=== PATIENT | female | born 1945 | race Caucasian/White ===

== ENCOUNTER 2019-12-31 20:02 | Emergency (ER) | payer MEDICARE, SELFPAY ==
[2019-12-31 20:03] VITALS: BP 141/90; PULSE 92; RESP 14; TEMP 36.3; O2SAT 99; BMI 29.5
--- NOTE | 2019-12-31 20:15 | ED.DCSUM_ITS ---
History of Present Illness Chief Complaint: Diarrhea Detail of Chief Complaint: Watery stools especially after eating Informant: Patient, Significant Other Onset: Weeks Context: Sudden Onset Timing: Intermittent Quality: Watery diarrhea with mucus Location: Not applicable Current Severity: Moderate Maximum Severity: Moderate Worsened by: Initially antibiotics now with meals Relieved by: Nothing Associated Symptoms: Complains of abdominal distention and bloating for the past couple of days Narrative: It is a 74-year-old woman who was placed on Augmentin for respiratory infection. She states she developed diarrhea. She discontinued the antibiotic. She continued to have diarrhea. Diarrhea subsided somewhat. Over the past 8 to 9 days she is going 8+ times a day. She notes mucus without blood. There is no history of amatory bowel disorder. She denies history of C. difficile. She denies ill contacts. She is concerned because she has abdominal pain with bloating and distention over the past couple of days. She is still flagellated. She denies prior history of small bowel obstruction. She did have bilateral tubal ligation performed many years ago. She states even if she eats a small amount she will have 4-5 loose stools immediately after eating. She denies weight loss, however. She denies thirst or dry mouth. She denies orthostatic symptoms. She denies fevers or chills. Prior similar symptoms: No Recent Illness/Hospitalization: Yes - Respiratory treated with antibiotics - Past Medical History (1) No significant past medical history Status: Acute Past Medical History - Allergies and Home Meds Allergies/Adverse Reactions: Allergies No Known Allergies Allergy (Verified 12/31/19 20:03) Primary Care Physician: Gordo Fairchild MD [Primary Care Provider] - Prior records reviewed: Yes Past Medical History: None Surgical History: - - Bilateral tubal ligation Lives: Spouse/ Significant Other Smoking Status: Never smoker Alcohol: None Drugs: None Review of Systems General: Denies: Chills, Fever, Malaise, Subjective, Sweats, Weight loss, - Cardiovascular: Denies: Chest pain, Palpitations Respiratory: Reports: Dyspnea Gastrointestinal: Reports: Abdominal pain, Nausea, Diarrhea. Denies: Vomiting, Constipation, Melena, Hematochezia, -, - Musculoskeletal: Denies: Myalgias, Arthralgias, Swelling, Extremity Pain Skin: Denies: Rash, Wounds Neurological: Reports: Weakness. Denies: Headache, Parasthesia Endocrine: Denies: Polyuria, Polydipsia Hematologic: Denies: Easy bruising, Easy bleeding Physical Exam Vital Signs/Narrative: Vital Signs Temp Pulse Resp BP Pulse Ox 12/31/19 20:03 97.4 F L 92 14 141/90 H 99 Inital Vital Signs reviewed: Yes General: Well nourished, Well developed, No Acute Distress Head: Normocephalic, Atraumatic Eyes: Perrl, EOMI. Negative for: Pale conjunctiva, Scleral icterus ENT: No rhinorrhea, TM's clear, Dry mucous membranes Neck: Supple, Nontender, No lymphadenopathy, No JVD Cardiovascular: Regular rate, Regular rhythm, No murmurs, Normal S1, Normal S2 Respiratory: No distress, CTA bilaterally, Chest nontender Abdomen: Soft, Nontender, No masses, Hyperactive bowel sounds. Negative for: Nondistended, Normal bowel sounds, Tender, Guarding, Rebound tenderness, Hepatomegaly, Splenomegaly, Ventral hernia, Umbilical hernia Back: Nontender Extremities: No edema Skin: Negative for: Normal color, No rash Neurological: Alert, Oriented x3, Cranial nerves II-XII grossly intact, Normal Strength, Normal Sensation Psychological: Normal affect, Normal Mood Diagnostic/Tx/Re-eval 12/31/19 20:50 Stool Stool Lactoferrin - Final Laboratory Results 12/31/19 12/31/19 20:10 20:10 WBC 10.3 RBC 4.33 Hgb 13.0 Hct 39.5 MCV 91.2 MCH 30.0 MCHC 32.9 RDW Std Deviation 43.9 RDW Coeff of Evelio 13.1 Plt Count 260 MPV 10.0 Immature Gran % (Auto) 0.400 Neut % (Auto) 63.5 Lymph % (Auto) 28.1 [place] % (Auto) 5.7 Eos % (Auto) 1.9 Baso % (Auto) 0.4 Absolute Neuts (auto) 6.5 Absolute Lymphs (auto) 2.88 Nucleated RBC % 0 Sodium 141 Potassium 3.6 Chloride 109 H Carbon Dioxide 28.0 Anion Gap 4 L BUN 9 Creatinine 0.90 Estim Creat Clear Calc 48.07 Est GFR (MDRD) Af Amer 79 Est GFR (MDRD) Non-Af 65 BUN/Creatinine Ratio 10.0 Glucose 109 H Calcium 8.6 Stool is positive fecal leukocytes. C. difficile is pending. Plan if C. difficile negative discharge with metronidazole and Cipro because of the positive fecal leukocytes and referral to PCP and GI. If C. difficile is positive treat with vancomycin. - Medical Decision Making History of diarrhea that started after antibiotics and has gotten worse and will obtain stool culture since symptoms have been present for greater than a month. Also stool for C. difficile and fecal leukocytes. Basic metabolic panel was obtained to assess electrolytes and specifically potassium as well as renal function. CBC to assess white count and differential to rule out eosinophilia which would suggest parasitic infection. Even though she denies being thirsty her tongue is dry and will treat with 1 L of normal saline. The night physician Dr. Earl Mcgill was informed the patient's plan. Will have home-going instructions as if C. difficile is negative. ED Disposition - Plan for ED Patient: Diagnosis: Diarrhea of presumed infectious origin Instructions: DIARRHEA, Unk Cause (Adult) Report Pendg Prescriptions: Ciprofloxacin [Cipro] 500 mg PO BID #14 tab Prescription Printed Metronidazole 500 mg PO TID #21 tab Prescription Printed Referrals: Gordo Fairchild MD [Primary Care Provider] - 3-5 Days
[2019-12-31 20:33] LABS: Absolute Lymphocyte Count 2.88 X10^3/uL (0.83-4.51); Absolute Neutrophil Count 6.5 X10^3/uL (2.0-7.7); Basophil# 0.04 X10^3/uL; Basophil% 0.4 % (0-1); Eosinophil# 0.19 X10^3/uL; Eosinophils% 1.9 % (0-5); Hematocrit 39.5 % (37-47); Lymphocyte # 2.88 X10^3/ul (4.0); Lymphocyte % 28.1 % (19-41); Mean Corp Hgb Conc 32.9 g/dL (32-36); Mean Corpuscular Volume 91.2 fL (81-99); Monocyte# 0.58 X10^3/uL; Monocyte% 5.7 % (0-10); NRBC Flagged by Analyzer 0 % (0-5); Neutrophil # 6.52 X10^3/uL (2.7-7.7); Neutrophil % 63.5 % (47-70); Platelet Count 260 K/mm3 (150-450); RBC Distribution Width CV 13.1 % (11.6-14.6); RBC Distribution Width SD 43.9 fl (35.1-43.9); Red Blood Count 4.33 M/mm3 (4.2-5.4); White Blood Count 10.3 K/mm3 (4.4-11.0)
[2019-12-31 20:52] LABS: Anion Gap 4 (5-15); BUN 9 mg/dL (7-18); Calcium,Total 8.6 mg/dL (8.5-10.1); Chloride 109 mmol/L (98-107); EST Glomerular Filtration Rate 65 mL/min (>60); Est Glom Filt Rate - Afr Amer 79 mL/min (>60); Estimated Creatinine Clearance 48.07 ml/min; Glucose 109 mg/dL (74-106); Potassium 3.6 mmol/L (3.5-5.1); Sodium Level 141 mmol/L (136-145)
[2019-12-31 22:12] VITALS: BP 123/63; PULSE 63; RESP 16; O2SAT 98
--- NOTE | 2019-12-31 22:34 | ED.VIS.GEN ---
History of Present Illness Chief Complaint: Diarrhea Informant: Patient, Significant Other Past Medical History - Allergies and Home Meds Allergies/Adverse Reactions: Allergies No Known Allergies Allergy (Verified 12/31/19 20:03) Primary Care Physician: Gordo Fairchild MD [Primary Care Provider] - 3-5 Days Surgical History: - - Bilateral tubal ligation Lives: Spouse/ Significant Other Smoking Status: Never smoker Alcohol: None Drugs: None Physical Exam Vital Signs/Narrative: Vital Signs Temp Pulse Resp BP Pulse Ox 12/31/19 22:12 63 16 123/63 H 98 12/31/19 20:03 97.4 F L 92 14 141/90 H 99 ED Disposition - Plan for ED Patient: Disposition: Home or Assisted Living Diagnosis: Diarrhea of presumed infectious origin Instructions: Clostridium difficile Infection Prescriptions: Ciprofloxacin [Cipro] 500 mg PO BID #14 tab Prescription Printed Metronidazole 500 mg PO TID #21 tab Prescription Printed Vancomycin [Vancocin] 125 mg PO Q6H #40 cap Prescription Printed Referrals: Gordo Fairchild MD [Primary Care Provider] - 3-5 Days
[2019-12-31 22:39] VITALS: BP 123/63; PULSE 63; RESP 16; O2SAT 98
== END 2019-12-31 23:24 | disposition home or self-care (01) ==
PROVIDERS: Emergency Provider Emergency Medicine; PCP Family Medicine
DX: A09 Infectious gastroenteritis and colitis, unspecified (principal)
CPT/HCPCS: 80048; 83630; 85025; 87493; 87506; 99284; A4216

== ENCOUNTER 2024-11-24 15:48 | Emergency (ER) | payer MEDICARE, SELFPAY ==
[2024-11-24 15:50] VITALS: BP 144/87; PULSE 73; RESP 16; TEMP 36.5; O2SAT 98; BMI 29.2
[2024-11-24 17:49] VITALS: BP 140/77; PULSE 71; RESP 18; O2SAT 98
--- NOTE | 2024-11-24 18:00 | EX.ED.DYSGE1 ---
HPI History of Present Illness Chief Complaint: Other, Pain/Inj Informant: patient and spouse/S.O. Narrative Narrative: 79-year-old female presenting to the emergency room with acute neck pain. Patient states over the past week or so she has had cough with mucus production and rhinorrhea. She states that she was trying some Mucinex and Tessalon Perles but they were not very effective. Because of history of C. difficile she was reluctant to start doxycycline but she eventually started it with a probiotic. She has not been experiencing any fevers or vomiting. No rashes. Today when she got up she had some slight neck discomfort that has progressively gotten worse. She states she cannot find a position of comfort. It is worse with movement and with coughing. She notes pain when she swallows and the muscles but not in the throat per se. She denies any radicular symptoms to the arm or the legs. She denies any headache. No photophobia. PFSH PFSH Home Medications ?Medication ?Instructions ?Recorded ?Last Taken ?Type Vancomycin [Vancocin] 125 mg PO Q6H #40 caps 12/31/19 Unknown Rx ciprofloxacin HCl 500 mg tablet 500 mg PO BID #14 tabs 12/31/19 Unknown Rx meloxicam 7.5 mg tablet 1 tab PO QODAY 12/31/19 Unknown History metronidazole 500 mg tablet 500 mg PO TID #21 tabs 12/31/19 Unknown Rx venlafaxine 37.5 mg tablet 37.5 mg PO DAILY 12/31/19 Unknown History oxycodone-acetaminophen 5 mg-325 1 tab PO Q6H PRN PRN Pain 3 days 11/24/24 Unknown Rx mg tablet #12 TABLETS Allergy/AdvReac Type Severity Reaction Status Date / Time No Known Allergies Allergy Verified 12/31/19 20:03 Social History Smoking Status: Never smoker ROS ROS ED Constitutional Constitutional ED: Denies chills, fever(s) or weight loss Eyes Eyes: Denies change in vision or diplopia ENT ENT ED: Reports rhinorrhea; Denies ear pain or sore throat Cardiovascular Cardiovascular: Denies chest pain, orthopnea, palpitations or racing heartbeat Respiratory/Chest Respiratory/Chest: Reports cough; Denies dyspnea or orthopnea Gastrointestinal Gastrointestinal: Denies abdominal pain, diarrhea, nausea or vomiting Genitourinary Genitourinary ED: Denies dysuria, hematuria or urinary frequency Musculoskeletal Musculoskeletal: Reports neck pain; Denies arthralgias or myalgias Integumentary Denies abscess or rash Neurologic Neurologic: Denies headache(s) or weakness Psychiatric Psychiatric: Denies anxiety, depression, suicidal ideation or suicidal thoughts Endocrine Endocrinology: Denies polydipsia, polyphagia or polyuria Allergic/Immunologic Allergic/Immunologic ED: Denies mouth swelling, tongue swelling or urticaria EXAM Physical Exam Narrative Exam Narrative: Patient appears uncomfortable laying back in the bed. She has an ice pack on her neck. Const Vital Signs: 11/24/24 15:50 11/24/24 17:49 11/24/24 19:00 Temperature 97.7 F L Temperature Source Temporal Pulse Rate 73 71 Respiratory Rate 16 18 Blood Pressure 144/87 H 140/77 H 100/62 Blood Pressure Mean 106 98 74 Pulse Ox 98 98 Oxygen Delivery Method Room Air Room Air Positive well nourished and well developed General Appearance ED: well developed HEENT Reports normocephalic, head/scalp atraumatic and moist mucous membranes Eyes PERRL and EOMs intact bilaterally Neck no lymphadenopathy, supple and no JVD Neck Narrative: Patient notes tenderness to palpation over the posterior aspect of the neck. I do not appreciate any erythema or swelling particularly pain attention around the mastoid region. Decreased range of motion secondary to pain. No stridor. Oropharyngeal exam appears unremarkable. Resp normal respiratory effort and clear to auscultation bilaterally Cardio regular rate, regular rhythm and no murmurs GI normal to inspection, nondistended, normoactive bowel sounds and non-tender Palpation: soft Back/Spine no CVA tenderness and normal ROM Extremity normal to inspection General Extremety ED: Negative for edema General Extremity: Negative for edema Neuro oriented x3, CN's II-XII intact bilaterally and no sensory deficits noted Sensorium / Orientation: alert Motor Exam: strength 5/5 throughout Psych mental status grossly normal Mood & Affect: Negative for depressed or tearful Skin no rashes or lesions noted and no wounds MDM MDM MDM Narrative Medical decision making narrative: Differential diagnosis includes but not limited to muscle spasm lymphadenitis abscess meningitis myofascial strain Clinically this does not appear to be meningitis. She has no fever no headache no photophobia. This did not appear to be radicular in nature. White count 9.[address] of the neck with IV contrast obtained essentially negative. Patient was placed in a soft collar given Toradol and some morphine. She notes improvement of pain. I think this is musculoskeletal in nature possibly due to cough or perhaps she slept abnormally last night resulting in muscle spasm. Recommend the patient use anti-inflammatories heat the soft collar I can write for a few pain medication would recommend PCP follow-up if not improving return if worsening History & Record Review Discussion w/independent historian: Patient and Significant other Lab Data Attestation: I reviewed the patient's lab results. Labs: Laboratory Results - last 24 hr 11/24/24 18:15 WBC 9.6 RBC 4.21 Hgb 12.6 Hct 38.4 MCV 91.2 MCH 29.9 MCHC 32.8 RDW Std Deviation 43.9 RDW Coeff of Evelio 13.2 Plt Count 233 MPV 10.5 Immature Gran % (Auto) 0.300 Neut % (Auto) 69.1 Lymph % (Auto) 21.5 [place] % (Auto) 6.5 Eos % (Auto) 2.2 Baso % (Auto) 0.4 Absolute Neuts (auto) 6.6 Absolute Lymphs (auto) 2.06 Nucleated RBC % 0 Sodium 137 Potassium 3.5 Chloride 102 Carbon Dioxide 28.0 Anion Gap 8 BUN 11 Creatinine 0.71 Estim Creat Clear Calc 58.30 Est GFR (MDRD) Af Amer 103 Est GFR (MDRD) Non-Af 85 BUN/Creatinine Ratio 15.6 Glucose 102 Calcium 8.8 Radiography Diagnostic Testing: Clinical Impression(s) from Imaging Studies Soft Tissue Neck CT 11/24/24 18:43 IMPRESSION: Normal neck CT. Electronically Signed: Fanny Chew MD at 19:46 EST Reading Location ID and State: [id number] / Tel , Service support , Discharge Plan Triage Chief Complaint: Other, Pain/Inj ED Provider: Stephen Pham Dx/Rx/DC Orders Clinical Impression: Acute neck pain, Cervical (neck) region somatic dysfunction Instructions: ED Neck Spasm, No Trauma Prescriptions: New oxycodone-acetaminophen 5-325 mg tablet 1 tab PO Q6H PRN PRN (Reason: Pain) 3 Days Qty: 12 0RF No Action meloxicam 7.5 MG tablet 1 tab PO QODAY Patient Comments: TAKE 1 TABLET BY MOUTH ONCE DAILY venlafaxine 37.5 MG tablet 37.5 mg PO DAILY metronidazole 500 MG tablet 500 mg PO TID Qty: 21 0RF ciprofloxacin HCl 500 MG tablet 500 mg PO BID Qty: 14 0RF Vancomycin [Vancocin] 125 MG capsule 125 mg PO Q6H Qty: 40 0RF Primary Care Provider: Gordo Fairchild Referrals: Gordo Fairchild MD [Primary Care Provider] - As Needed Print Language: Turkish Disposition Disposition: Home, Self Care
[2024-11-24] MEDS: Ondansetron 4 MG/2 ML Vial IV (18:10)
[2024-11-24] MEDS: Ketorolac 15 MG/ML Vial IV (18:11)
[2024-11-24] MEDS: Morphine 4 MG/ML Syringe IV (18:11)
[2024-11-24 18:25] LABS: Absolute Lymphocyte Count 2.06 X10^3/uL (0.83-4.51); Absolute Neutrophil Count 6.6 X10^3/uL (2.0-7.7); Basophil# 0.04 X10^3/uL; Basophil% 0.4 % (0-1); Eosinophil# 0.21 X10^3/uL; Eosinophils% 2.2 % (0-5); Hematocrit 38.4 % (37-47); Hemoglobin 12.6 g/dL (12.0-15.0); Lymphocyte # 2.06 X10^3/ul (0.83-4.51); Lymphocyte % 21.5 % (19-41); Mean Corp Hgb Conc 32.8 g/dL (32-36); Mean Corpuscular Hgb 29.9 pg (27.0-32.0); Mean Corpuscular Volume 91.2 fL (81-99); Mean Platelet Vol. 10.5 fl (6.2-12.0); Monocyte# 0.62 X10^3/uL; Monocyte% 6.5 % (0-10); NRBC Flagged by Analyzer 0 % (0-5); Neutrophil # 6.62 X10^3/uL (2.7-7.7); Neutrophil % 69.1 % (47-70); Platelet Count 233 K/mm3 (150-450); RBC Distribution Width CV 13.2 % (11.6-14.6); RBC Distribution Width SD 43.9 fl (35.1-43.9); Red Blood Count 4.21 M/mm3 (4.2-5.4); White Blood Count 9.6 K/mm3 (4.4-11.0)
[2024-11-24 18:39] LABS: Anion Gap 8 (5-15); BUN 11 mg/dL (7-18); BUN/Creat Ratio 15.6 RATIO (10-20); Calcium,Total 8.8 mg/dL (8.5-10.1); Chloride 102 mmol/L (98-107); Creatinine, Serum 0.71 mg/dL (0.55-1.02); EST Glomerular Filtration Rate 85 mL/min (>60); Est Glom Filt Rate - Afr Amer 103 mL/min (>60); Glucose 102 mg/dL (74-106); Potassium 3.5 mmol/L (3.5-5.1); Sodium Level 137 mmol/L (136-145)
--- NOTE | 2024-11-24 18:43 | CT_ITS ---
EXAM: CT NECK WITH INTRAVENOUS CONTRAST CLINICAL INDICATION: pain TECHNIQUE: Helically acquired images were obtained of the neck with intravenous contrast. This CT exam was performed using one or more of the following dose reduction techniques: automated exposure control, adjustment of the mA and/or kV according to patient size, and/or use of iterative reconstruction technique. CONTRAST: IV 75mL [id number] COMPARISON: No relevant prior studies available. FINDINGS: NASOPHARYNX: Unremarkable. SUPRAHYOID NECK: Unremarkable. Oropharynx, oral cavity, parapharyngeal space and retropharyngeal space are unremarkable. INFRAHYOID NECK: Unremarkable. The larynx, hypopharynx and supraglottis are unremarkable. SUBMANDIBULAR/PAROTID GLANDS: Unremarkable. Glands are normal in size. THYROID: Unremarkable. No enlarged or calcified nodules. BONES/JOINTS: No acute fracture. SOFT TISSUES: Unremarkable. VASCULATURE: Unremarkable. Abdominal aorta is normal in caliber. LYMPH NODES: Unremarkable. No lymphadenopathy. LUNG APICES: Unremarkable as visualized. CT/Soft Tissue Neck WITH Contrast IMPRESSION: Normal neck CT. Electronically Signed: Fanny Chew MD at 19:46 EST Reading Location ID and State: [id number] / Tel , Service support ,
[2024-11-24 19:00] VITALS: BP 100/62
[2024-11-24 20:20] VITALS: BP 100/62; PULSE 78; RESP 17; TEMP 36.6; O2SAT 99
== END 2024-11-24 21:13 | disposition home or self-care (01) ==
PROVIDERS: Emergency Provider Emergency Medicine; PCP Family Medicine; Visit Provider Emergency Medicine
DX: M54.2 Cervicalgia (principal); M99.01 Segmental and somatic dysfunction of cervical region
CPT/HCPCS: 70491; 80048; 85025; 96374; 96375; 99283; Q9967; A4216; J2405